=== PATIENT | female | born 1985 | race Caucasian/White ===

== ENCOUNTER 2018-12-13 10:19 | Emergency (ER) | payer OTHER ==
[~2018-12-13] VITALS: Ht 165.1 cm; Wt 91.8 kg
[2018-12-13 10:52] VITALS: Ht 165.1 cm; Wt 91.8 kg
[2018-12-13] MEDS ORDERED: ALBUTEROL 0.083% (NEB) 2.5 MG/3 ML AMP HHN STA (11:24)
[2018-12-13] MEDS ORDERED: DEXAMETHASONE 10 MG/ML 1 ML INJ IM ONE (11:30)
[2018-12-13] MEDS ORDERED: IPRATROPIUM (NEB) 0.5 MG/2.5 ML AMP HHN ONE (11:30)
[2018-12-13] MEDS ORDERED: AZIT250T PO (12:24)
[2018-12-13] MEDS ORDERED: ALBU8.5H8 INH (12:25)
[2018-12-13 12:49] VITALS: BP 114/68; PULSE 109; RESP 18
--- NOTE | 2018-12-13 12:49 | ERD ---
ER Documentation Chief Complaint Chief Complaint cough x1wk, possible asthma HPI 33-year-old female presenting with cough times 1 week. Patient has asthma exacerbation. She states she is using inhaler 3 times an hour with no fevers. Patient is 2 months . Denies any pleuritic chest pain. Has a productive cough. Medical history is asthma. Allergy to penicillin. Surgical history . Social history denies ROS All systems reviewed and are negative except as per history of present illness. Medications Home Meds Active Scripts Albuterol Sulfate* (Proair HFA*) 8.5 Gm Hfa.aer.ad, 2 PUFF INH Q4, #1 INHALER Prov:AUDREY GOODEN PA-C 12/13/18 Azithromycin* (Zithromax*) 250 Mg Tablet, 250 MG PO .ZPACK DIRECTED, #6 TAB TAKE 500 MG (2 TABS) THE FIRST DAY THEN 250 MG (1 TAB) DAYS 2-5 Prov:AUDREY GOODEN PA-C 12/13/18 Allergies Allergies: Coded Allergies: No Known Allergy (Unverified , 12/13/18) PMhx/Soc History of Surgery: No Anesthesia Reaction: No Hx Neurological Disorder: No Hx Respiratory Disorders: Yes (asthma) Hx Cardiac Disorders: No Hx Psychiatric Problems: No Hx Miscellaneous Medical Probl: No Hx Alcohol Use: No Hx Substance Use: No Hx Tobacco Use: No Smoking Status: Never smoker Physical Exam Vitals Vital Signs Date Temp Pulse Resp B/P (MAP) Pulse Ox O2 O2 Flow FiO2 Time Delivery Rate 12/13/18 98.5 109 18 114/68 97 Room Air 12:49 (83) 12/13/18 105 16 99 21 11:43 12/13/18 98.6 96 18 13/74 (54) 97 10:52 Physical Exam Const: No acute distress Head: Atraumatic Eyes: Normal Conjunctiva ENT: Normal External Ears, Nose and Mouth. Neck: Full range of motion. No meningismus. Resp: Clear to auscultation bilaterally Cardio: Regular rate and rhythm, no murmurs Abd: Soft, non tender, non distended. Normal bowel sounds Skin: No petechiae or rashes Back: No midline or flank tenderness Ext: No cyanosis, or edema Neur: Awake and alert Psych: Normal Mood and Affect Results 24 hrs Current Medications Medications Dose Sig/Carla Start Time Status Last (Trade) Ordered Route PRN Stop Time Admin Dose Reason Admin Ipratropium 0.5 mg ONCE ONCE 12/13/18 DC 12/13/18 [place] [facility] 11:30 11:43 (Atrovent 12/13/18 11:31 0.02% (Neb)) Albuterol 5 mg ONCE STAT 12/13/18 DC 12/13/18 (Proventil [facility] 11:24 11:42 0.083% (Neb)) 12/13/18 11:25 10 mg ONCE ONCE 12/13/18 DC 12/13/18 Dexamethasone IM 11:30 11:30 (Decadron) 12/13/18 11:31 Ceftriaxone 1 gm ONCE ONCE 12/13/18 Sodium IM 13:00 (Rocephin) 12/13/18 13:01 Procedures/MDM DIAGNOSTIC IMAGING REPORT Patient: JENI PERRIN : 1985 Age: 33 Sex: F MR #: [id number] DOS: 12/13/18 1124 Ordering MD: LATOYA GOODEN PA-C Location: [facility] Room/Bed: PROCEDURE: XR Chest. CLINICAL INDICATION: Cough TECHNIQUE: Single frontal view of the chest was obtained COMPARISON: None FINDINGS: The heart and mediastinum are within normal limits. There are bilateral perihilar and lower lobe increased interstitial changes. There is no pleural effusion or pneumothorax. RPTAT: AA IMPRESSION: Bilateral perihilar and lower lobe increased interstitial changes may represent atypical infection. ER Course: Albuterol Atrovent breathing treatment given ED. IM Rocephin injection given ED. Decadron given ED. MDM: 33-year-old female presenting with cough and concerning findings for early pneumonia. I have low suspicion for respiratory distress or hypoxia. I have low suspicion for PE or vascular abnormality. Patient be treated aggressively and told to follow-up with primary care within 1-2 days for close evaluation. Patient is told if symptoms change or worsen to return immediately to the ER. All questions answered at discharge Departure Diagnosis: Primary Impression: Cough Condition: Stable Patient Instructions: Cough, Chronic, Uncertain Cause, (Adult), Pneumonia (Adult) Referrals: COMM[facility] YOU HAVE RECEIVED A MEDICAL SCREENING EXAM AND THE RESULTS INDICATE THAT YOU DO NOT HAVE A CONDITION THAT REQUIRES URGENT TREATMENT IN THE EMERGENCY DEPARTMENT. FURTHER EVALUATION AND TREATMENT OF YOUR CONDITION CAN WAIT UNTIL YOU ARE SEEN IN YOUR DOCTORS OFFICE WITHIN THE NEXT 1-2 DAYS. IT IS YOUR RESPONSIBILITY TO MAKE AN APPOINTMENT FOR FOLOW-UP CARE. IF YOU HAVE A PRIMARY DOCTOR --you should call your primary doctor and schedule an appointment IF YOU DO NOT HAVE A PRIMARY DOCTOR YOU CAN CALL OUR PHYSICIAN REFERRAL HOTLINE AT IF YOU CAN NOT AFFORD TO SEE A PHYSICIAN YOU CAN CHOSE FROM THE FOLLOWING [facility] [address] [facility] [address] [facility] [place] [address] [facility] [address] [facility] [address] [facility]. [facility]. [address] Additional Instructions: FOLLOW UP WITH YOUR PRIMARY CARE PHYSICIAN TOMORROW.Return to this facility if you are not improving as expected. AUDREY GOODEN PA-C Dec 13, 2018 12:49
[2018-12-13] MEDS ORDERED: CEFTRIAXONE 1 GM INJ IM ONE (13:00)
== END 2018-12-13 13:15 | disposition home or self-care (01) ==
LOC: FTE 10:19
DX: R05 Cough (principal); J45.901 Unspecified asthma with (acute) exacerbation
CPT/HCPCS: 71045; 94664; 96372; J0696; J1100; Z7502; Z7610